=== PATIENT | female | born 1970 | race Caucasian/White ===

== ENCOUNTER 2024-08-29 21:39 | Emergency (ER) | payer MEDICAID ==
[~2024-08-29] VITALS: Ht 165.1 cm; Wt 59.1 kg
[2024-08-29 21:45] VITALS: BP 136/79; PULSE 104; O2SAT 97
[2024-08-29] MEDS ORDERED: IBUP-1984 PO (23:50)
[2024-08-30 00:13] VITALS: TEMP 97.9
[2024-08-30 00:25] VITALS: RESP 18
[2024-08-30] MEDS: ketorolac trometh 15mg/ml vial 15 MG/ML ML IM ONE (00:25)
== END 2024-08-30 00:14 | disposition home or self-care (01) ==
LOC: ER 21:40
DX: M79.644 Pain in right finger(s) (principal); Z88.1 Allergy status to other antibiotic agents; Z79.1 Long term (current) use of non-steroidal anti-inflammatories (NSAID)
CPT/HCPCS: 73130; 96372; 99283; J1885

== ENCOUNTER 2025-05-19 00:41 | Emergency (ER) | payer MEDICAID ==
[~2025-05-19] VITALS: Ht 167.6 cm; Wt 68.6 kg
[2025-05-19 00:52] VITALS: BP 128/86; PULSE 96; O2SAT 98
--- NOTE | 2025-05-19 01:05 | ELECTROCARDIOGRAPH REPORT ---
[facility] Test Date: 2025-05-19 Test Time: 01:03:29 Pat Name: DONNELL LANDRY Department: EMERGENCY ROOM Patient ID: [id number] Room: Gender: F Pharmacometrician: STUDENT : 1970 Requested By: CATHERINE IVORY Order Number: [id number] Reading MD: Dr. LUZ Zeng Measurements Intervals Gordon Rate: 97 P: 140 UT: 126 QRS: 135 QRSD: 89 T: 88 QT: 338 QTc: 430 Interpretive Statements Right and left arm electrode reversal, interpretation assumes no reversal Sinus or ectopic atrial rhythm Probable left atrial enlargement Right axis deviation Abnormal lateral Q waves Probable anteroseptal infarct, old Electronically Signed On 05-21-2025 18:08:[address] LUZ Zeng Please click the below link to view image of tracing.
--- NOTE | 2025-05-19 01:20 | Physician Documentation ---
History of Present Illness ~ Chief Complaint: Rib pain Stated Complaint: RIB PAIN Time Seen by MD: 03:00 HPI Patient is a very pleasant 54-year-old female that presents presents to the emergency department for evaluation of left-sided rib pain that has migrated to under her left breast over the last couple of weeks. Patient reports a very sharp pain that has been persistent. Patient denies shortness of breath chest pressure radiating chest pain lightheadedness dizziness fever chills nausea vomiting or diarrhea at this time. Denies any other symptoms at this time. No fevers. Occasional ibuprofen with limited benefit. Patient does smoke but denies any other past medical history Tetanus within 5 Years?: No Allergies: Coded Allergies: amoxicillin (Unverified Allergy, Unknown, 08/29/24) Active Prescriptions See Medication Reconciliation Form. Past Medical History Past Medical History: No Pertinent History Review of Systems ROS All review of systems negative except as per HPI Physical Exam Vital Signs: Temperature: 98.2, Source: Oral, Heart Rate: 96, Respiratory Rate: 17, BP: 128/86, Pulse Oximetry: 98, Weight: 68.590 Oxygen Flow Rate: 0 Physical Exam General: Patient is awake, alert, oriented x4 in no acute distress and well appearing.~ Head: Normocephalic and atraumatic. Eyes: Conjunctival normal. EOMI. PERRL. ENT: Mucous membranes moist. Neck: Supple, trachea is midline. Chest: Clear to auscultation bilaterally without rales, rhonchi. Mild expiratory wheezing bilaterally. There is no accessory muscle use or retractions. Tender to palpation to chest wall beneath left breast Cardiac: RRR without murmurs, gallops, or rubs. Abd: Soft, nondistended, nontender, with normoactive bowel sounds. No guarding, rebound, or rigidity. Progress Results/Orders Results/Orders Vital Signs 05/19/25 00:52 Temp 98.2 Pulse 96 Resp 17 B/P (MAP) 128/86 Pulse Ox 98 O2 Flow Rate 0 EKG/XRAY/CT/US/VASC/MRI EKG : Additional Comment EKG interpreted by myself shows time of 0103, rate 97, sinus rhythm, right axis deviation, no ST changes Chest X-Ray : Additional Comments Exam: RIBS,[facility] EXAMINATION: DI RIBS,UNILAT INDICATION: PAIN LEFT COMPARISON: None TECHNIQUE: Previous FINDINGS: No displaced rib or other fracture. No consolidation, pleural effusion or pneumothorax. Normal heart size. IMPRESSION: No displaced rib fracture or acute cardiopulmonary abnormality. Medical Decision Making Additional information obtaine: N/A Findings Patient presents to the emergency room for chest pain that has per HPI. Pain that has exacerbated with palpation and deep inspiration. Given history and physical exam and he had not feel emergent labs are necessary as symptoms are inconsistent with ACS. Pain is reproducible which is very reassuring. Heart score of two. Differential Dx:Considerations: Include: Chest wall contusion, Flail chest, Myocardial contusion, Pneumothorax, Pulmonary contusion, Rib fracture, Renal contusion, Splenic fracture, Tension pneumothorax, Other Departure Disposition: 01 HOME / SELF CARE / HOMELESS Impression: Primary Impression: Rib pain Condition: Stable Discharge Instructions: Rib Contusion Referrals: NO PRIMARY CARE PROVIDER (PCP) Prescriptions Hydrocodone Bit/Acetaminophen 5/325 MG ([place] 5/325 MG) 5 Mg/325 Mg Tablet 1 TAB PO Q4-6 hours PRN for pain, #12 TAB Prov: GRUPO SUN MD 05/19/25 Signature Scribe Signature: No scribe Attestation: The note accurately reflects work and decisions made by me.Grupo Sun MD 05/19/25 03:10 CATHERINE IVORY May 19, 2025 01:20 GRUPO SUN MD May 19, 2025 03:08
--- NOTE | 2025-05-19 02:08 | RADIOLOGY REPORT ---
[facility] EX[facility] DI RIBS,UNILAT INDICATION: PAIN LEFT COMPARISON: None TECHNIQUE: Previous FINDINGS: No displaced rib or other fracture. No consolidation, pleural effusion or pneumothorax. Normal heart size. IMPRESSION: No displaced rib fracture or acute cardiopulmonary abnormality.
[2025-05-19] MEDS ORDERED: HYDR-3965 PO (03:10)
[2025-05-19] MEDS ORDERED: LIDO-52 TOP (03:13)
[2025-05-19] MEDS ORDERED: INDO75CA3 PO (03:13)
[2025-05-19] MEDS: ondansetron 4mg rapidly disintigrating tab PO ONE (03:51)
[2025-05-19 03:52] VITALS: RESP 14
[2025-05-19] MEDS: HYDROcodone/acetaminophen 5mg/325mg tablet PO ONE (03:52)
[2025-05-19] MEDS: ibuprofen tablet 400 MG TABLET PO ONE (03:53)
[2025-05-19 04:09] VITALS: TEMP 98.2
== END 2025-05-19 04:16 | disposition home or self-care (01) ==
LOC: ER 00:41
DX: R07.89 Other chest pain (principal); F17.200 Nicotine dependence, unspecified, uncomplicated; Z88.0 Allergy status to penicillin
CPT/HCPCS: 71100; 93005; 99284